=== PATIENT | male | born 1970 | race Caucasian/White ===

== ENCOUNTER 2016-07-05 23:12 | Emergency (ER) | payer BC ==
[2016-07-05] MEDS ORDERED: Ketorolac 60 MG/2 ML SDV IM ONE (23:53)
--- NOTE | 2016-07-06 | EDM.PDOC ---
ED HPI GENERAL MEDICAL PROBLEM - General Stated Complaint: CHEST PAIN Time Seen by Provider: 07/05/16 23:42 - History of Present Illness INITIAL COMMENTS - FREE TEXT/NARRATIVE: HISTORY AND PHYSICAL: History of present illness: The patient is a 45-year-old male with a history of asthma that's well- controlled and seasonal allergies and follows in our clinic and presents with complaints of right upper chest pain that started about 3 hours ago. The patient states that 4 days ago he was working with some tools and accidentally bumped in that same area and he had a bruise to his chest wall. He did not seek treatment as it was not severe than the bruises almost completely gone. Today he had a completely normal day without any fever chills cough strenuous activities vomiting or abdominal pain and had no chest pain throughout the day. He was sitting with his son doing paperwork when he gradually started feeling discomfort in that same right chest wall area which increased over the 3 hours. He says when he laughs or moves certain ways or coughs the pain will increase. He has no left-sided chest pain no abdominal pain no diaphoresis or nausea with the pain and he is not short of breath. He did not take any medications for the pain. He has no leg pain swelling or asymmetry and no recent long trips. He has no history of bleeding disorders or clotting disorders. Review of systems: As per history of present illness and below otherwise all systems reviewed and negative. Past medical history: As per history of present illness and as reviewed below otherwise noncontributory. Surgical history: As per history of present illness and as reviewed below otherwise noncontributory. Social history: No reported history of drug or alcohol abuse. Family history: As per history of present illness and as reviewed below otherwise noncontributory. Physical exam: General: Well-developed well-nourished male in no overt distress and less he laughs or moves certain ways. His vital signs were noted by me and he is not tachypnic or hypoxic. He is not tachycardic HEENT: Atraumatic, normocephalic, pupils reactive, negative for conjunctival pallor or scleral icterus, mucous membranes moist, throat clear, neck supple, nontender, trachea midline. Lungs: Clear to auscultation, breath sounds equal bilaterally, there is no work or breathing or sensory muscle use. On palpation of the right chest wall area there is one spot that reproduces the pain but there is no crepitus or bony deformities appreciated. There is no gross soft tissue swelling in the right breast is without tenderness. There is a very faint resolving ecchymosis seen in the area of the patient's prior trauma in the same region. Heart: S1S2, regular, negative for clicks, rubs, or JVD. Abdomen: Soft, nondistended, nontender. Negative for masses or hepatosplenomegaly. Negative for costovertebral tenderness. Pelvis: Stable nontender. Genitourinary: Deferred. Rectal: Deferred. Extremities: Atraumatic, negative for cords or calf pain. Neurovascular unremarkable. No pedal edema or leg asymmetry Neuro: Awake, alert, oriented. Cranial nerves II through XII unremarkable. Cerebellum unremarkable. Motor and sensory unremarkable throughout. Exam nonfocal. Diagnostics: EKG chest x-ray CBC CMP troponin d-dimer Therapeutics: Toradol Patient states he does feel better after the Toradol and the pain is just very dull now. He and are aware of all testing results and I recommended followup in the clinic with Dr. Castillo for any progression of these problems and further evaluation. Advised on reasons to return to the ED Impression: Right chest wall pain Definitive disposition and diagnosis as appropriate pending reevaluation and review of above. Right Chest Pain Score (Numeric/FACES): 7 - Related Data Allergies Allergy/AdvReac Type Severity Reaction Status Date / Time grass Allergy Hives Uncoded 07/06/16 00:35 pet dander Allergy Hives Uncoded 07/06/16 00:35 Home Meds: Home Meds . [No Known Home Meds] 07/06/16 [History] Fluticasone/Salmeterol [Advair 250-50 Diskus] 1 puff INH DAILY 07/06/16 [History ] ED ROS GENERAL - Review of Systems Review Of Systems: ROS reveals no pertinent complaints other than HPI. ED EXAM, GENERAL - Physical Exam Exam: See Below (See dictation) Course - Vital Signs Last Recorded V/S: Last Vital Signs Temp 36.4 C 07/05/16 23:40 Pulse 80 07/05/16 23:40 Resp 18 07/05/16 23:40 BP 157/84 H 07/05/16 23:40 Pulse Ox 96 07/05/16 23:40 - Orders/Labs/Meds Orders: Active Orders 24 hr Category Date Time Status EKG Documentation Completion [RC] STAT Care 07/05/16 23:53 Active Chest 2V [CR] Stat Exams 07/05/16 23:53 Taken Labs: Laboratory Tests 07/05/16 07/05/16 07/05/16 Range/Units 00:15 00:15 00:15 WBC 6.94 (4.0-11.0) K/uL RBC 4.96 (4.50-5.90) M/uL Hgb 14.3 (13.0-17.0) g/dL Hct 42.7 (38.0-50.0) % MCV 86.1 (80.0-98.0) fL MCH 28.8 (27.0-32.0) pg MCHC 33.5 (31.0-37.0) g/dL RDW Std Deviation 40.9 (28.0-62.0) fl RDW Coeff of Gabriele 13 (11.0-15.0) % Plt Count 241 (150-400) K/uL MPV 9.70 (7.40-12.00) fL Neut % (Auto) 42.0 L (48.0-80.0) % Lymph % (Auto) 42.9 H (16.0-40.0) % [place] % (Auto) 8.1 (0.0-15.0) % Eos % (Auto) 6.1 (0.0-7.0) % Baso % (Auto) 0.9 (0.0-1.5) % Neut # (Auto) 2.9 (1.4-5.7) K/uL Lymph # (Auto) 3.0 H (0.6-2.4) K/uL [place] # (Auto) 0.6 (0.0-0.8) K/uL Eos # (Auto) 0.4 (0.0-0.7) K/uL Baso # (Auto) 0.1 (0.0-0.1) K/uL Nucleated RBC % 0.0 /100WBC Nucleated RBCs # 0 K/uL D-Dimer, Quantitative 0.28 (0.0-0.52) mg/LFEU Sodium 142 (136-146) mmol/L Potassium 3.7 (3.5-5.1) mmol/L Chloride 111 H (98-110) mmol/L Carbon Dioxide 22 (21-31) mmol/L BUN 19 (6.0-23.0) mg/dL Creatinine 1.2 (0.6-1.5) mg/dL Est Cr Clr Drug Dosing 91.33 mL/min Estimated GFR (MDRD) > 60.0 ml/min Glucose 101 (60-110) mg/dL Calcium 9.2 (8.8-10.8) mg/dL Total Bilirubin 0.3 (0.1-1.5) mg/dL AST 15 (5-40) IU/L ALT 17 (8-54) IU/L Alkaline Phosphatase 94 (40-150) Troponin I (0.0-0.29) NG/ML Total Protein 7.0 (6.0-8.0) g/dL Albumin 4.1 (3.5-5.0) g/dL Globulin 2.9 (2.0-3.5) g/dL Albumin/Globulin Ratio 1.4 (1.3-2.8) // Range/Units 00:15 WBC (4.0-11.0) K/uL RBC (4.50-5.90) M/uL Hgb (13.0-17.0) g/dL Hct (38.0-50.0) % MCV (80.0-98.0) fL MCH (27.0-32.0) pg MCHC (31.0-37.0) g/dL RDW Std Deviation (28.0-62.0) fl RDW Coeff of Gabriele (11.0-15.0) % Plt Count (150-400) K/uL MPV (7.40-12.00) fL Neut % (Auto) (48.0-80.0) % Lymph % (Auto) (16.0-40.0) % [place] % (Auto) (0.0-15.0) % Eos % (Auto) (0.0-7.0) % Baso % (Auto) (0.0-1.5) % Neut # (Auto) (1.4-5.7) K/uL Lymph # (Auto) (0.6-2.4) K/uL [place] # (Auto) (0.0-0.8) K/uL Eos # (Auto) (0.0-0.7) K/uL Baso # (Auto) (0.0-0.1) K/uL Nucleated RBC % /100WBC Nucleated RBCs # K/uL D-Dimer, Quantitative (0.0-0.52) mg/LFEU Sodium (136-146) mmol/L Potassium (3.5-5.1) mmol/L Chloride (98-110) mmol/L Carbon Dioxide (21-31) mmol/L BUN (6.0-23.0) mg/dL Creatinine (0.6-1.5) mg/dL Est Cr Clr Drug Dosing mL/min Estimated GFR (MDRD) ml/min Glucose (60-110) mg/dL Calcium (8.8-10.8) mg/dL Total Bilirubin (0.1-1.5) mg/dL AST (5-40) IU/L ALT (8-54) IU/L Alkaline Phosphatase (40-150) Troponin I < 0.10 (0.0-0.29) NG/ML Total Protein (6.0-8.0) g/dL Albumin (3.5-5.0) g/dL Globulin (2.0-3.5) g/dL Albumin/Globulin Ratio (1.3-2.8) Meds: Medications Discontinued Medications Generic Name Dose Route Start Last Admin Trade Name Freq PRN Reason Stop Dose Admin Ketorolac Tromethamine 60 mg 07/05/16 23:53 07/06/16 00:07 Toradol IM 07/05/16 23:54 60 mg ONETIME ONE Administration Departure - Departure Time of Disposition: 01:07 Disposition: Home, Self-Care 01 Condition: good Clinical Impression: Right-sided chest wall pain Additional Instructions: The following information is given to patients seen in the emergency department who are being discharged to home. This information is to outline your options for follow-up care. We provide all patients seen in our emergency department with a follow-up referral. The need for follow-up, as well as the timing and circumstances, are variable depending upon the specifics of your emergency department visit. If you don't have a primary care physician on staff, we will provide you with a referral. We always advise you to contact your personal physician following an emergency department visit to inform them of the circumstance of the visit and for follow-up with them and/or the need for any referrals to a consulting specialist. The emergency department will also refer you to a specialist when appropriate. This referral assures that you have the opportunity for followup care with a specialist. All of these measure are taken in an effort to provide you with optimal care, which includes your followup. Under all circumstances we always encourage you to contact your private physician who remains a resource for coordinating your care. When calling for followup care, please make the office aware that this follow-up is from your recent emergency room visit. If for any reason you are refused follow-up, please contact the [facility] emergency department at and ask to speak to the emergency department charge nurse. [facility] Primary care- Internal Medicine and Family [address] Castillo in the clinic for further care and evaluation and return to ER as needed and as discussed. Please use [id number] Tylenol/ ibuprofen for pain. If you do increased activities utilizing the muscles of the area ice afterwards. - My Orders Last 24 Hours: My Active Orders 07/05/16 23:53 EKG Documentation Completion [RC] STAT Chest 2V [CR] Stat - Assessment/Plan Last 24 Hours: My Active Orders 07/05/16 23:53 EKG Documentation Completion [RC] STAT Chest 2V [CR] Stat
[2016-07-06 00:48] LABS: CHLORIDE,CL 111 mmol/L (98-110); SODIUM,NA 142 mmol/L (136-146)
[2016-07-06 03:12] VITALS: BP 131/81
--- NOTE | 2016-07-06 12:26 | CR ---
EXAM DATE: 07/05/16 PATIENT'S AGE: 45 Patient: ROMA EISENBERG Facility: [place], [place] Site . Site : [id number] Study: XRay Chest [id number]/17/2017 12:42:52 AM Ordering Physician: Sally Rincon Final Report: INDICATION: R upper cest pain upon inspiration TECHNIQUE: Chest radiograph 2 views COMPARISON: None FINDINGS: Cardiovascular and mediastinum: The cardiac silhouette is normal in appearance and size. Mediastinum is within normal limits. Lungs and pleural spaces: Both lungs are unremarkable in appearance. No sign of pleural effusion. No pneumothorax is seen. Bones and soft tissues: No significant findings. IMPRESSION: 1. No acute cardiopulmonary disease seen. Dictated by: Sandeep Allen MD @ 07/06/2016 00:44:49 (Electronic Signature) Report Signed by Proxy and Original Signed Document filed in the Medical Record. MTDD
== END 2016-07-06 01:22 | disposition home or self-care (01) ==
LOC: MW.ED 23:12
DX: R07.89 Other chest pain (principal); J45.909 Unspecified asthma, uncomplicated; Z91.048 Other nonmedicinal substance allergy status
CPT/HCPCS: 36415; 71020; 80053; 84484; 85025; 85379; 93005; 96372; 99285; J1885; 99284

== ENCOUNTER → 2016-07-09 | Outpatient (CLI) | payer BC ==
[2016-07-09 08:20] LABS: CHLORIDE,CL 109 mmol/L (98-110); SODIUM,NA 141 mmol/L (136-146)
== END ==
LOC: MW.CHFP 07:35
PROVIDERS: ATTEND Physician Assistant
DX: Z13.1 Encounter for screening for diabetes mellitus (principal); E78.5 Hyperlipidemia, unspecified
CPT/HCPCS: 36415; 80048; 80061; 83036

== ENCOUNTER 2023-04-16 10:15 | Day surgery (SDC) | payer BC ==
[~2023-04-16 10:15] MED LIST: Lactated Ringers 1,000 ML IV SCH
[2023-04-16] MEDS ORDERED: Propofol 200 MG/20 ML SDV ONE (11:21)
[2023-04-16] MEDS ORDERED: Lidocaine 2% 5 ML SDV ONE (11:21)
[2023-04-16] MEDS ORDERED: Lactated Ringers 1,000 ML IV SCH (12:00)
[2023-04-16 13:58] VITALS: BP 135/81; PULSE 81
== END 2023-04-16 12:15 | disposition home or self-care (01) ==
LOC: MW.SDS 10:15
PROVIDERS: ATTEND Surgery
DX: Z12.11 Encounter for screening for malignant neoplasm of colon (principal); D12.2 Benign neoplasm of ascending colon; D12.5 Benign neoplasm of sigmoid colon; K57.30 Diverticulosis of large intestine without perforation or abscess without bleeding; L57.0 Actinic keratosis; J45.40 Moderate persistent asthma, uncomplicated; F32.A Depression, unspecified; R68.82 Decreased libido; E78.5 Hyperlipidemia, unspecified; R73.09 Other abnormal glucose; Z79.899 Other long term (current) drug therapy
CPT/HCPCS: 45380; J2704; J7120; 00811; J3490

== ENCOUNTER 2025-01-12 06:31 | Day surgery (SDC) | payer BC ==
[2025-01-12] MEDS: Lactated Ringers 1,000 ML IV SCH (07:05)
[2025-01-12] MEDS ORDERED: Propofol 200 MG/20 ML SDV ONE ×2 (07:24→08:03)
[2025-01-12] MEDS ORDERED: dexmedeTOMIDine HCl 200 MCG/2 ML SDV ONE (07:26)
[2025-01-12 10:16] VITALS: BP 112/69; PULSE 79
== END 2025-01-12 09:10 | disposition home or self-care (01) ==
LOC: MW.SDS 06:31
PROVIDERS: ATTEND Surgery
DX: K29.50 Unspecified chronic gastritis without bleeding (principal); K21.9 Gastro-esophageal reflux disease without esophagitis; K20.0 Eosinophilic esophagitis; K31.7 Polyp of stomach and duodenum; K44.9 Diaphragmatic hernia without obstruction or gangrene; J45.909 Unspecified asthma, uncomplicated; E78.5 Hyperlipidemia, unspecified; Z91.048 Other nonmedicinal substance allergy status; Z79.899 Other long term (current) drug therapy
CPT/HCPCS: 43239; J2704; J7120